=== PATIENT | male | born 2000 | race Caucasian/White ===

== ENCOUNTER 2022-08-22 11:10 | Emergency (ER) | payer OTHER ==
[2022-08-22 11:22] VITALS: BP 130/78; RESP 20; TEMP 99; BMI 34.7
[2022-08-22] MEDS ORDERED: ACETAMINOPHEN 325 MG TABLET (FP) PO ONE (11:30)
[2022-08-22] MEDS ORDERED: ACETAMINOPHEN 325 MG TABLET (FP) ONE (11:38)
[2022-08-22 12:18] VITALS: PULSE 92
[2022-08-22 13:12] LABS: THROAT:GRP A STREP NOT DETECTED (NOTDETECTED)
== END 2022-08-22 12:25 | disposition home or self-care (01) ==
LOC: FER 11:10
DX: R51.9 Headache, unspecified (principal); R21 Rash and other nonspecific skin eruption; R09.89 Other specified symptoms and signs involving the circulatory and respiratory systems; J06.9 Acute upper respiratory infection, unspecified; B09 Unspecified viral infection characterized by skin and mucous membrane lesions; Z20.822 Contact with and (suspected) exposure to COVID-19
CPT/HCPCS: 0241U-QW; 87651; 99283-25